=== PATIENT | male | born 1975 | race Caucasian/White ===

== ENCOUNTER → 2017-11-11 | Outpatient (CLI) | payer OTHER ==
[~2017-11-11] MED LIST: AUGM875T28 PO; CYCL10TA PO; FLON1SPR
--- NOTE | 2017-11-11 13:14 | REP ---
MRI RIGHT SHOULDER: TECHNIQUE: Axial T2 fat sat, gradient echo, sagittal oblique T2 fat sat, coronal oblique T1, T2 fat sat. There is a full thickness partial tear of the supraspinatus tendon with a 6 mm gap in the tendon. There is underlying tendinopathy/tendonitis of the remaining supraspinatus tendon. No other rotator cuff tendon tear is seen. There are mild hypertrophic degenerative changes of the acromioclavicular joint. Acromion is type II. Biceps tendon is within the bicipital groove with no tenosynovitis. There is no Hill-Sachs deformity. Deltoid muscle demonstrates no abnormal signal. No definite labral tear is seen. Tiny subchondral cystic changes are seen in the superolateral humeral head. There is no bone marrow edema or occult fracture. There is no joint effusion. There is no paralabral cyst. IMPRESSION: Full thickness partial tear supraspinatus tendon with underlying tendopathy/tendonitis of the remaining tendon. No evidence of a labral tear. Mild hypertrophic degenerative changes acromioclavicular joint with type II acromion. Signed by Kirill Sarmiento MD 11/13/2017 08:55 A
== END ==
LOC: M PLARAD 09:15
PROVIDERS: ATTEND Orthopaedic Surgery
DX: M75.41 Impingement syndrome of right shoulder (principal)

== ENCOUNTER 2017-11-24 14:44 | Emergency (ER) | payer OTHER ==
[~2017-11-24] VITALS: Ht 182.9 cm; Wt 87.5 kg
[2017-11-24 14:44] VITALS: BP 141/70
[2017-11-24] MEDS ORDERED: ALEV220C2 PO (14:53)
--- NOTE | 2017-11-24 17:06 | ED PDOC ---
Post-Departure Follow-Up [facility] Reference #: [id number] [place] Foster Nov 24, 2017 17:06
[2017-11-24] MEDS ORDERED: CYCL10TA PO ×2 (17:09→17:27)
[2017-11-24] MEDS ORDERED: PERC5TAB12 PO (17:09)
[2017-11-24] MEDS ORDERED: IBUP-1022 PO ×2 (17:09→17:27)
[2017-11-24] MEDS ORDERED: IBUPROFEN 800 MG TAB PO ONE (17:15)
== END 2017-11-24 17:30 | disposition home or self-care (01) ==
LOC: M ED 14:44
DX: M75.101 Unspecified rotator cuff tear or rupture of right shoulder, not specified as traumatic (principal); Z72.0 Tobacco use

== ENCOUNTER 2017-12-13 08:54 | Outpatient (RCR) | payer OTHER | END 2018-01-01 | LOC: M PT 08:54 | DX: Z51.89 Encounter for other specified aftercare (principal); M75.101 Unspecified rotator cuff tear or rupture of right shoulder, not specified as traumatic | CPT/HCPCS: 97110 ==

== ENCOUNTER → 2018-01-08 | Outpatient (REF) | payer OTHER ==
[2018-01-08 12:27] LABS: C REACTIVE PROTEIN QUANTITATIV < 0.30 MG/DL (0.00-0.30); RHEUMATOID FACTOR QUANT < 10.0 IU/ML (0-15.0)
[2018-01-08 12:27] LABS: ERYTHROCYTE SEDIMENTATION RATE 2 mm/hr (0-15); PSA SCREENING 0.75 NG/ML (< 4.0)
== END ==
LOC: M SFHCPLAZ 10:05
DX: M79.642 Pain in left hand (principal); M79.641 Pain in right hand; R39.11 Hesitancy of micturition
CPT/HCPCS: 84153

== ENCOUNTER → 2018-01-16 | Outpatient (CLI) | payer OTHER | LOC: M RAD 11:25 | DX: M79.642 Pain in left hand (principal); M79.641 Pain in right hand; M19.041 Primary osteoarthritis, right hand; M19.042 Primary osteoarthritis, left hand; M79.5 Residual foreign body in soft tissue | CPT/HCPCS: 73130 ==